=== PATIENT | male | born 1990 | race Caucasian/White ===

== ENCOUNTER 2017-09-01 15:01 | Emergency (ER) | payer SELFPAY ==
[~2017-09-01] VITALS: Ht 165.1 cm; Wt 104.3 kg
[2017-09-01] MEDS ORDERED: HYDROCODONE/APAP 5-325MG TABLET ONE (15:59)
[2017-09-01] MEDS ORDERED: HYDROCODONE/APAP 5-325MG TABLET PO ONE (16:00)
[2017-09-01] MEDS ORDERED: diphenhydrAMINE 50 MG/1 ML VIAL ONE (16:59)
[2017-09-01] MEDS ORDERED: HYDROMORPHONE 2 MG/1 ML DISP.SYRIN ONE (16:59)
[2017-09-01] MEDS ORDERED: diphenhydrAMINE 50 MG/1 ML VIAL IM ONE (17:00)
[2017-09-01] MEDS ORDERED: HYDROMORPHONE 1 MG/1 ML DISP.SYRIN IM ONE (17:00)
--- NOTE | 2017-09-01 17:07 | NUR ---
Patient discharged to home in stable conditon. Written and verbal after care instructions given. Patient verbalizes understanding of instructions.PT WALKS IN STEADY GAIT. PT NOT DRIVING
[2017-09-01 17:08] VITALS: BP 139/81
== END 2017-09-01 17:09 | disposition home or self-care (01) ==
LOC: ER 15:02
DX: K46.9 Unspecified abdominal hernia without obstruction or gangrene (principal)
CPT/HCPCS: 76870; 96372 ×2; 99285; A4663; J1170; J1200